=== PATIENT | male | born 1945 | race Caucasian/White ===

== ENCOUNTER → 2024-08-24 16:21 | Outpatient (REF) | payer OTHER, SELFPAY | LOC: RAD 16:21 | PROVIDERS: ATTENDING PHYSICIAN Nurse Practitioner Adult Health; FAMILY PHYSICIAN Family Medicine; REFERRING PHYSICIAN Registered Nurse | DX: M25.561 Pain in right knee (principal); M54.2 Cervicalgia | CPT/HCPCS: 72040; 73564 ==

== ENCOUNTER 2025-01-01 02:51 | Inpatient (IN) | payer OTHER, SELFPAY ==
[2024-12-31 22:44] VITALS: BP 170/89
[2024-12-31 23:47] VITALS: BP 163/93
[2024-12-31 23:52] VITALS: BMI 25.3
[2025-01-01] VITALS (10 sets, daily range): BP systolic 113–184; BP diastolic 79–95; PULSE 88; BMI 26.7
[2025-01-01 00:02] LABS: % Basophils 0.2 % (0-2); % Immature Granulocytes 0.6 % (0-0.5); % Lymphocytes 7.3 % (20.5-51.1); % Monocytes 8.9 % (1.7-9.3); Absolute Immature Granulocytes 0.1 10^3/uL (0-0.05); Absolute Lymphocytes 1.1 10^3/uL (1.2-3.4); Absolute Monocytes 1.4 10^3/uL (0.1-0.6); Absolute Neutrophils 12.9 10^3/uL (1.4-6.5); Hematocrit 36.6 % (39.0-52.0); Hemoglobin 12.7 g/dL (13.0-18.0); Mean Corp Hgb Conc. 34.7 g/dL (33.0-37.0); Mean Corpuscular Hgb 33.7 pg (27.0-31.0); Mean Corpuscular Volume 97.1 fL (80.0-94.0); Mean Platelet Volume 11.1 fL (7.4-10.4); Nucleated Red Blood Cells % 0 % (-); Platelet Count 186 10^3/uL (130-400); Red Blood Cell Count 3.77 10^6/uL (4.70-6.10); White Blood Cell Count 15.5 10^3/uL (4.8-10.8)
[2025-01-01 00:17] LABS: ALT (SGPT) 17 U/L (0-50); AST (SGOT) 20 U/L (17-59); Albumin 4.2 g/dl (3.5-5.0); Alkaline Phosphatase 67 U/L (38-126); Blood Urea Nitrogen 17 mg/dl (9-20); Calcium 9.9 mg/dl (8.4-10.2); Carbon Dioxide 28 mmol/L (22-30); Chloride 102 mmol/L (98-107); Estimated Creatinine Clearance 76 ml/min; Glucose 109 mg/dl (70-99); Lipase 646 U/L (23-300); Potassium 4.4 mmol/L (3.5-5.1); Sodium 137 mmol/L (135-145); Total Bilirubin 0.8 mg/dl (0.2-1.3); Total Protein 6.9 g/dl (6.3-8.2); eGFR > 60.00
--- NOTE | 2025-01-01 00:27 | ED.GENMED ---
History of Present Illness
General
Chief Complaint: Abdominal Pain
Source: patient
Time Seen by Provider: 01/01/25 00:11
History of Present Illness
History of Present Illness:
79-year-old male presents to the emergency room complaining of abdominal pain. Pain is located in the epigastric area. It does not radiate. Pain began earlier today. Patient had a knee replacement performed couple days ago at [facility]
orthopedics surgical center. He was prescribed several medications including Celebrex, oxycodone, Decadron postoperatively. Patient thought he was having pain related to the medications and so stopped the Celebrex and Decadron. He does have a
history of a hiatal hernia. Patient denies any abdominal operations in the past.
Phy Exam
Physical Exam
Physical Exam:
General: Awake, Alert, Oriented X3. No acute distress.
Vitals: unremarkable
Head: Atraumatic
Eyes: Pupils equal, EOMI
Throat: Airway intact, no exudates
Neck: Trachea midline
Lungs: Clear and equal b/l
Heart: Regular rate, no murmurs
Abd: Soft, tender to palpation in the upper abdomen, No pulsatile mass
Neuro: Nonfocal
Skin: Warm, dry, no rash
Extremities: pulses equal b/l, no edema
Course
Orders/Labs/Results
Orders:
Orders
12/31/24 22:44
EKG [Electrocardiogram (*1)] Urgent
Reason for Study: Abdominal Pain
EKG- Treatment ONCE
12/31/24 23:36
IV Insert/Care/Rem.- Treatment PRN
12/31/24 23:49
Complete Blood Count/With Diff Urgent
Comprehensive Metabolic Panel Urgent
Lipase Urgent
Triglycerides Urgent
Comment: ADD ON
01/01/25 00:25
HYDROmorphone [Dilaudid] 0.5 mg IV NOW STA
01/01/25 00:26
CT Abd/pelvis W Iv Cont Urgent
Comment:
Reason For Exam: epigastric pain
Lactated Ringers [Lr] 1,000 ml IV BOLUS
01/01/25 02:09
Add On- LAB Stat
Tests Added?: Triglycerides
Abnormal Lab Results
12/31/24
23:49
WBC 15.5 H 10^3/uL
(4.8-10.8)
RBC 3.77 L 10^6/uL
(4.70-6.10)
Hgb 12.7 L g/dL
(13.0-18.0)
Hct 36.6 L %
(39.0-52.0)
MCV 97.1 H fL
(80.0-94.0)
MCH 33.7 H pg
(27.0-31.0)
MPV 11.1 H fL
(7.4-10.4)
Abs Immat Gran (auto) 0.1 H 10^3/uL
(0-0.05)
Absolute Neuts (auto) 12.9 H 10^3/uL
(1.4-6.5)
Absolute Lymphs (auto) 1.1 L 10^3/uL
(1.2-3.4)
Absolute Monos (auto) 1.4 H 10^3/uL
(0.1-0.6)
Immature Gran % 0.6 H %
(0-0.5)
Neutrophils % 83.0 H %
(42.2-75.2)
Lymphocytes % 7.3 L %
(20.5-51.1)
Glucose 109 H mg/dl
(70-99)
Lipase 646 H U/L
(23-300)
12/31/24 23:49
12/31/24 23:49
Vital Signs
Initial and Last Documented VS:
Initial Vital Signs
Temp Pulse Resp BP Pulse Ox
98.9 F 90 18 170/89 98
12/31/24 22:44 12/31/24 22:44 12/31/24 22:44 12/31/24 22:44 12/31/24 22:44
Last Documented Vital Signs
Temp Pulse Resp BP Pulse Ox
98.9 F 80 17 184/95 95
12/31/24 22:44 01/01/25 02:00 01/01/25 02:00 01/01/25 02:00 01/01/25 02:00
MDM/Problems Addressed
Differential Diagnosis Includes:
Cholecystitis, choledocholithiasis, pancreatitis, gastritis
MDM/Problems Addressed:
Patient presents with epigastric pain. Labs show an elevated white blood cell count of 15.5, hemoglobin of 12.7. Electrolytes and renal function are normal. Glucose minimally elevated. LFTs are normal. Lipase elevated at 646. A CT was obtained
which shows acute pancreatitis without any complications. Pain improved with half milligram of Dilaudid. IV fluid resuscitation initiated with lactated Ringer's. Patient will require hospitalization for supportive care and further evaluation of
the cause of his pancreatitis.
*Radiology
Radiology exam reviewed: radiology read reviewed (Vision report)
*Pulse Oximetry
Patient hypoxic: no
*EKG
Interpreted by ED Provider?: Yes
Heart Rate: 80
Rate: normal
Rhythm: sinus
[place]: normal axis
Interval: normal interval
QRS Pattern: normal QRS
Ischemia: no ischemia
*Visual Merchandising Manager Interpretation
Rate: normal
Interpretation: normal
Rhythm: sinus
*Critical Care Note
Total Time (30-74mins, 75-104mins- exclusive of procedures): Not Applicable
ED Attending Note
-
Portions of this chart may have been created with voice recognition software.� Occasional wrong word or��sound alike� substitutions may have occurred due to the inherent limitations of voice recognition software.
Discharge Plan
Departure
Patient Disposition: Admit
Date of Disposition: 01/01/25
Time of Disposition: 01:24
Presentation/result/management discussed w/ accepting MD/DO: Hospitalist
Condition: Fair
Discharge Problem:
Acute pancreatitis
Referrals:
Odilon Tyson Jr., DO [Family Provider] -
Interventions
Interventions:
*Risk Screen - Suicide Last Done: 12/31/24 22:44
*General Assessment Last Done: 12/31/24 22:44
*Neglect/Abuse Screening Last Done: 12/31/24 22:44
*ED- Fall Risk Assessment Last Done: 12/31/24 22:44
*ED COVID-19 Vaccine History Last Done: 12/31/24 22:44
CR-Etmffx-Nfifzroree Assessment Last Done: 12/31/24 23:53
Discharge Date and Time
Print Language: HEBREW
[2025-01-01] MEDS: LR 1000 IV ×4 (00:59→17:07)
[2025-01-01] MEDS: DILAUDID 0.5 MG IV ×3 (01:00→09:42)
--- NOTE | 2025-01-01 02:24 | HPS.HSE ---
Family Physician
-
Family Physician: Odilon Tyson Jr.
Chief Complaint
-
Abdominal pain
History of Present Illness
This is a 79-year-old with past medical history significant for GERD, BPH, hyperlipidemia, postop day #2 status post right total knee arthroplasty presents to the emergency department with epigastric abdominal pain for the last 24 hours.
Patient reported that the procedure was uneventful and he was discharged home on medications including oxycodone, Tylenol, aspirin and Celebrex. Patient stated that after taking the Celebrex he started having epigastric pain. The Celebrex was
discontinued after 4 doses but he continued to have epigastric pain with nausea but no vomiting. He denies reflux type symptoms. He denies pain that is radiating to the back. The pain seems to be only epigastric. He denies any diarrhea. He
denies having any fevers or chills. Patient denies any urinary symptoms.
He denies any alcohol use. She denies any history of gallstones. He denies any prior history of intra-abdominal surgeries or pancreatitis.
In the emergency department patient was afebrile, he was hypertensive with a blood pressure as high as 180/90 and a pulse of 97. He had a white count of 15.5 otherwise CBC was unremarkable. Electrolytes BUN and creatinine were normal. His lipase
was elevated at 646. LFTs were completely normal. Total bilirubin was normal.
Medical History
Past Medical History
Past Medical History: Reports Hypercholesterolemia and Other (BPH)
Past Surgical History: Reports Orthopedic (Right total knee arthroplasty)
Social History
Tobacco: Non-smoker
Alcohol: Occasional
Drug: None
Personal:
Living: With Family
Employment: Retired
Family History
Family History: Not pertinent
Allergies / Home Medications
Allergies reflects when Allergies were last updated in [employer].
Home Medications with original date entered in [employer]
Allergy/Medication List:
Allergies
Allergy/AdvReac Type Severity Reaction Status Date / Time
No Known Allergies Allergy Unverified 12/31/24 22:44
Tamsulosin 0.4 mg capsule, 0.4 mg p.o. daily
Esomeprazole 40 mg tablet, 40 mg p.o. daily
Atorvastatin 10 mg tablet, 10 mg p.o. at bedtime
Gabapentin 300 mg tablet, 100 mg p.o. daily
Review of Systems
-
History Source: Patient and Family
Constitutional: Reports No Symptoms
EENT: Reports No Symptoms
Respiratory: Reports No Symptoms
Abdomen/GI: Reports Abdominal Pain
: Reports No Symptoms
Musculoskeletal: Reports No Symptoms
Skin: Reports No Symptoms
Neurological: Reports No Symptoms
Endocrine: Reports No Symptoms
Hematologic/Lymphatic: Reports No Symptoms
Psych: Reports No Symptoms
Physical Exam
Vital Signs
Vital Signs
Temp Pulse Resp BP Pulse Ox
98.9 F 80 17 184/95 95
12/31/24 22:44 01/01/25 02:00 01/01/25 02:00 01/01/25 02:00 01/01/25 02:00
Physical Exam
General: Well Developed, Well Nourished and Pain
HEENT: NormoCephalic, Anicteric, Moist mucous membranes and Atraumatic
Respiratory: Clear
Cardiac: S1/S2 and Regular Rhythm
Breast: Deferred by me
GI: Soft, Non Distended, Normal Bowel Sounds and Tender
Rectal: Deferred by Provider
Genito-urinary: Deferred by me
Musculoskeletal: No Clubbing, No Cyanosis and No Edema
Skin: Warm
Neuro: AO x 3 and Nonfocal/grossly intact
Hematologic/Lymphatic: No Lymphadenopathy
Psych: Calm
Laboratory Results
-
12/31/24 23:49
12/31/24 23:49
Laboratory Results
Total Bilirubin 0.8 mg/dl (0.2-1.3) 12/31/24 23:49
AST 20 U/L (17-59) 12/31/24 23:49
ALT 17 U/L (0-50) 12/31/24 23:49
Alkaline Phosphatase 67 U/L (38-126) 12/31/24 23:49
Lipase 646 U/L (23-300) H 12/31/24 23:49
Data Reviewed
-
CT Scan: Report Reviewed by me
Lab Data: Labs Reviewed by me
Old Records: Reviewed
Impression/Plan
-
IMPRESSION:
79-year-old who is postop day #2 status post right total knee arthroplasty presented emergency department with epigastric pain and found to have acute pancreatitis with a lipase of 600. LFTs are complete normal. CT of the abdomen pelvis consistent
with acute pancreatitis with pancreatic edema but no necrosis or peripancreatic fluid collection. There is no gallstone. There is no biliary ductal dilatation.
PLAN:
1. Acute pancreatitis -suspect acute interstitial pancreatitis secondary to drug induced or viral pancreatitis. Patient has no gallstones. No significant alcohol use. Exposure to celecoxib (class iv for pancreatitis). Non-toxic tylenol exposure.
Low dose oxycodone.
- admit to med/surg
- npo for now
- iv fluids
- pain control and antiemetics
- trend lfts
- check triglycerides and calcium
- hold celexocib
- GI consultation
DVT PPX - Lovenox sq
Code status - Full code
[2025-01-01 02:50] LABS: Triglycerides 74 mg/dl (10-149)
--- NOTE | 2025-01-01 05:06 | PTCARENOTE ---
03;20pt rec'vd from ER aaox3,able to ambulate to restroom, pt had r tka on the 12/29 at [place] , Aquacel intact w small drainage. pt is c/o 06/16mid abd pain, prn given, vs wnl ,oriented to unit.
[2025-01-01 06:50] LABS: Hematocrit 33.1 % (39.0-52.0); Hemoglobin 11.8 g/dL (13.0-18.0); Mean Corp Hgb Conc. 35.6 g/dL (33.0-37.0); Mean Corpuscular Hgb 34.7 pg (27.0-31.0); Mean Corpuscular Volume 97.4 fL (80.0-94.0); Mean Platelet Volume 11.3 fL (7.4-10.4); Platelet Count 177 10^3/uL (130-400); Red Cell Dist. Width 12.9 % (11.5-14.5); White Blood Cell Count 14.1 10^3/uL (4.8-10.8)
[2025-01-01 07:15] LABS: ALT (SGPT) 15 U/L (0-50); AST (SGOT) 17 U/L (17-59); Albumin 3.6 g/dl (3.5-5.0); Alkaline Phosphatase 64 U/L (38-126); Blood Urea Nitrogen 13 mg/dl (9-20); Calcium 9.5 mg/dl (8.4-10.2); Carbon Dioxide 27 mmol/L (22-30); Chloride 103 mmol/L (98-107); Direct Bilirubin 0.2 mg/dl (0.0-0.4); Estimated Creatinine Clearance 88 ml/min; Glucose 83 mg/dl (70-99); Potassium 4.1 mmol/L (3.5-5.1); Sodium 136 mmol/L (135-145); Total Bilirubin 0.7 mg/dl (0.2-1.3); Total Protein 5.9 g/dl (6.3-8.2); Triglycerides 60 mg/dl (10-149); eGFR > 60.00
--- NOTE | 2025-01-01 08:29 | CON.GI ---
Addendum entered and electronically signed by Jose Pringle MD 01/01/25 11:00:
Patient seen and examined, agree with nurse practitioner note. Patient presents with increasing epigastric pain. He recently had knee replacement and was on Decadron as well as aspirin and Celebrex. He started develop epigastric discomfort that
radiated to his back, started PPI though persisted. Upon presentation he is found to have mildly elevated lipase, normal LFTs, and CT scan with mild peripancreatic stranding. He is feeling better today, tolerating some clears, with much improved
pain overall. He has never had pain like this before. Usually has a couple of shots of alcohol nightly though has not had this since before his surgery. On exam he has minimal epigastric tenderness though otherwise is unremarkable.
1. Epigastric pain: Consistent with pancreatitis, with mild peripancreatic stranding noted on CT scan and elevated lipase. Etiology could be medication induced given steroids as well as NSAIDs. Posterior gastric ulcer is also possible though
seems less likely, is already much improved, and exam is benign. Alcohol seems less likely as he did stop this before his surgery. Biliary pancreatitis also seems unlikely given normal LFTs and CAT scan. At this point we will continue supportive
care, clear liquid diet, IV fluids. Will continue PPI twice daily for now and trend labs.
Original Note:
Consultation
-
Date/Time Consultation Requested: 01/01/25319
Date/Time Consultation Performed: 01/01/25828
Requesting Provider: Dr. Garcia
Performing Provider: Dr. Pringle/HIPOLITO Tierney
Reason for Consultation: pancreatitis
Medical History
Chief Complaint / HPI
Chief Complaint: abd pain
History of Present Illness:
79 y/o male with PMH of HLD, prostate cancer s/p XRT (2019), BPH, diverticulosis, GERD, colon polyps, osteoarthritis with recent right knee replacement on 12/28/24 presents to the ER with acute onset of epigastric/periumbilical pain. We are asked to
evaluate for the same. The patient states that he had a right TKA on Saturday. Was placed on ASA 325 mg, Celebrex BID, Decadron 4 mg BID as well as Oxycodone 5 mg prn. He states that on Saturday he started with pain in the epigastric/periumbilcial area
that was initially slight at first. He took Pepto Bismol with no relief by the second day with increasing discomfort he called his PCP who told him to stop the Celebrex and to increase Nexium to BID. Pain became increased, sharp, constant, non
radiating, associated with nausea and some some retching but no true vomiting. Nothing made better or worse. He denied and F, C, melena, hematochezia, dysphagia, odynophagia, early satiety or unintentional weight loss. He does drink 2 oz of bourbon
or scotch a day but stopped the week prior to surgery. No prior hx of sx like this prior. CT Abd/Pelvis with IV contrast without radiopaque gallstones, no biliary ductal dilatation, liver WNL, mild inflammatory stranding surrounding the entire
pancreas, suggestive of pancreatitis. No evidence of pancreatic necrosis or peripancreatic fluid collection. Patient was given 1 liter of LR already and continues on 100 cc/hr with decrease in pain but still present. Hgb 11.8 down from 12.7 showing
appropriate hemodilution for pancreatitis.
Past Medical History
Past Medical History: GERD, Hypercholesterolemia and Other (colon polyps, diverticulosis, osteoarthritis)
Past Surgical History: Other (right TKA)
Social History
Tobacco: Non-Smoker
Alcohol: Daily (2 oz of bourbon or scotch a day)
Drug: None
Personal:
Living: With Family
Employment: Retired
Family History
Family History: Other (No family hx of GI malignancy or IBD)
Allergies / Home Medications
Allergy/AdvReac Type Severity Reaction Status Date / Time
No Known Allergies Allergy Unverified 12/31/24 22:44
Review of Systems
-
All other systems: A 12 pt ROS was Negative except as stated above in HPI
Vital Signs
Temp Pulse Resp BP Pulse Ox
99.7 F 92 17 161/87 98
01/01/25 03:31 01/01/25 03:31 01/01/25 03:31 01/01/25 03:31 01/01/25 03:31
Physical Exam
Exam
General: No Apparent Distress
HEENT: Anicteric
Respiratory: Clear
Cardiac: Regular Rhythm
GI: Soft, Non Tender, Non Distended and Normal Bowel Sounds
Musculoskeletal: Edema (trace edema RLE)
Skin: Warm and Dry
Neuro: AO x 3
Psych: Calm
Results
WBC 14.1 10^3/uL (4.8-10.8) H 01/01/25 05:32
Hgb 11.8 g/dL (13.0-18.0) L 01/01/25 05:32
Hct 33.1 % (39.0-52.0) L 01/01/25 05:32
MCV 97.4 fL (80.0-94.0) H 01/01/25 05:32
Plt Count 177 10^3/uL (130-400) 01/01/25 05:32
Absolute Neuts (auto) 12.9 10^3/uL (1.4-6.5) H 12/31/24 23:49
Sodium 136 mmol/L (135-145) 01/01/25 05:32
Potassium 4.1 mmol/L (3.5-5.1) 01/01/25 05:32
Chloride 103 mmol/L (98-107) 01/01/25 05:32
Carbon Dioxide 27 mmol/L (22-30) 01/01/25 05:32
BUN 13 mg/dl (9-20) 01/01/25 05:32
Creatinine 0.6 mg/dL (0.7-1.3) L 01/01/25 05:32
Calcium 9.5 mg/dl (8.4-10.2) 01/01/25 05:32
Total Bilirubin 0.7 mg/dl (0.2-1.3) 01/01/25 05:32
AST 17 U/L (17-59) 01/01/25 05:32
ALT 15 U/L (0-50) 01/01/25 05:32
Alkaline Phosphatase 64 U/L (38-126) 01/01/25 05:32
Lipase 646 U/L (23-300) H 12/31/24 23:49
Diagnostic Image Results:
CT Abd/Pelvis with IV contrast:
IMPRESSION:
1. Findings consistent with acute pancreatitis. No evidence of pancreatic necrosis or peripancreatic fluid collection. No biliary ductal dilation appreciated.
2. Minimal reticular interstitial thickening at each lung base, similar compared to prior CT, suggestive of mild senescent change/interstitial fibrosis.
3. Small hiatal hernia.
Findings are in agreement with the after [facility] radiology report
Prior GI Procedures:
EGD:
Colonoscopy: 10/23/2021 No endoscopic evidence of radiation proctitis.
- Diverticulosis in the sigmoid colon.
- One 3 mm polyp in the sigmoid colon, removed with a
jumbo cold forceps. Resected and retrieved.
- One 7 mm polyp in the transverse colon, removed with
a cold snare. Resected and retrieved.
- The examined portion of the ileum was normal.
Colonoscopy 07/09/2018 - Non-bleeding external and internal hemorrhoids.
- Diverticulosis in the left colon.
- One 3 mm polyp in the sigmoid colon, removed with a
jumbo cold forceps. Resected and retrieved.
- One 5 mm polyp in the descending colon, removed with a
cold snare. Resected and retrieved.
- Two 2 mm polyps in the distal transverse colon,
removed with a jumbo cold forceps. Resected and
retrieved.
- One 5 mm polyp in the transverse colon, removed with a
jumbo cold forceps. Resected and retrieved.
- One 2 mm polyp in the transverse colon, removed with a
jumbo cold forceps. Resected and retrieved.
- Two 2 mm polyps in the cecum, removed with a jumbo
cold forceps. Resected and retrieved.
- The examined portion of the ileum was normal.
Assessment / Plan
-
79 y/o male with PMH of HLD, prostate cancer s/p XRT (2019), BPH, diverticulosis, GERD, colon polyps, osteoarthritis with recent right knee replacement on 12/28/24 presents to the ER with acute onset of epigastric/periumbilical pain. We are asked to
evaluate for the same. CT Abd/Pelvis with IV contrast without radiopaque gallstones, no biliary ductal dilatation, liver WNL, mild inflammatory stranding surrounding the entire pancreas, suggestive of pancreatitis. No evidence of pancreatic necrosis
or peripancreatic fluid collection. Normal LFTs. Lipase 563. Normal Calcium. Triglycerides 60. Patient was given 1 liter of LR already and continues on 100 cc/hr with decrease in pain but still present. Hgb 11.8 down from 12.7 showing appropriate
hemodilution for pancreatitis. Patient does drink 2 oz scotch or bourbon daily, no drink in > 1 week in anticipation for recent right TKA. New medications include Decadron and Celebrex which could have caused pancreatitis. Less likely the ASA 325
mg.
Impression:
Pancreatitis, first episode
Recent right TKA 12/28/24
Plan:
-Continue IVF, LR at 100 cc/hr
-Add incentive spirometer
-CBC, BMP in am
-Sips of clears as tolerated, if does ok will likely give clears later today.
-Would avoid ETOH, discussed patient as this was a daily habit for him.
-Continue Pantoprazole 40 mg IV daily.
-
-
Thank you for consultation and allowing me to participate in the patient's care. Please call the research professional GI physician during the after hours with any questions or concerns.
--- NOTE | 2025-01-01 08:34 | W.PN.HOSP.TC ---
Addendum entered and electronically signed by Andrea Jennings MD 01/01/25 13:10:
NAD, sitting in bedside chair
Scleral Anicteric
MMM
No JVD
CTABL
RRR, S1/S2
Soft, NT, ND, BS+
Warm, Dry
AAOx3
Calm
Acute pancreatitis
IV fluids with LR at 200 cc/h
Antiemetics
Analgesics
Clear liquid diet
Right TKA, recent as of 12/28/2024
PT OT
Ice
Elevate
Resume orthopedic recommended DVT prophylaxis of aspirin 325 mg daily
Original Note:
Today's Communication/Plan
-
Cont fluids
Pain management
Advance to liquid diet once nausea under control
Assessment / Plan
Assessment / Plan
79-year-old male who is postop day 2 status post total right knee arthroplasty presented to ED with midepigastric pain and found to have acute pancreatitis with lipase of 646. LFTs within normal limits, gallstone seen, no biliary ductal dilation on
pelvic CT. CT did reveal acute pancreatitis with pancreatic edema, but no necrosis or peripancreatic fluid collection. Triglycerides within normal limits, patient denies frequent alcohol use.
#Acute pancreatitis
� Likely secondary to recent celecoxib use status post total right knee arthroplasty as patient has no gallstones, no significant alcohol use, triglycerides within normal limits
-Transition from n.p.o. to clear liquid diet when patients nausea is under control
� IV fluids
� Pain control and antiemetics
� Follow LFTs
� Triglycerides and calcium within normal limits
� Hold Celecoxib
� GI appreciated
#Total right knee arthoplasty POD#3
-PT/OT consulted
#GERD
-Continue pantoprazole
#HLD
-Cont atorvastatin
#BPH
-Cont tamsulosin
DVT lovenox
Full Code
Anticipated Discharge: 24 - 48 hours
Subjective/Interval History
-
Date of Service: January 01, 2025
Objective Data
-
Labs:
Laboratory Results
12/31/24 01/01/25
23:49 05:32
WBC 15.5 H 14.1 H
Hgb 12.7 L 11.8 L
Hct 36.6 L 33.1 L
Plt Count 186 177
Sodium 137 136
Potassium 4.4 4.1
Chloride 102 103
Carbon Dioxide 28 27
BUN 17 13
Creatinine 0.7 0.6 L
Glucose 109 H 83
Calcium 9.9 9.5
Total Bilirubin 0.8 0.7
AST 20 17
ALT 17 15
Alkaline Phosphatase 67 64
Vital Signs:
Vital Signs
Temp Pulse Resp BP Pulse Ox
99.7 F 92 17 161/87 98
01/01/25 03:31 01/01/25 03:31 01/01/25 03:31 01/01/25 03:31 01/01/25 03:31
I&O
12/31/24 01/01/25 01/02/25
06:59 06:59 06:59
Intake Total 350 / 350
Output Total 400 / 400
Balance -50 / -50
Review of Systems
-
History Source: Patient
EENT: Reports No Symptoms Reported
Respiratory: Reports No Symptoms
Cardiac: Reports No Symptoms
Abdomen/GI: Reports Abdominal Pain; Denies Nausea, Vomiting, Diarrhea or Constipated
Neuro: Reports No Symptoms
Physical Exam
-
General: No Apparent Distress and Comfortable
HEENT: Normocephalic
Respiratory: Clear to Auscultation
Cardiac: Regular Rhythm, S1/S2 and Murmur (best heard at aortic point ); Negative Carotid Bruits
GI: Soft, Nondistended, Normal Bowel Sounds and Tender (Mid epigastric region )
Musculoskeletal: No Edema
Skin: Warm and Dry
Neuro: AO x 3
Psych: Calm
[2025-01-01] MEDS: FLOMAX 0.4 MG PO (09:35)
[2025-01-01] MEDS: PROTONIX IV 40 MG IV (09:35)
--- NOTE | 2025-01-01 11:53 | CM ---
Initial assessment completed
Pt lives with his in a 2 story home; 2 [address], FF set-up
Independent at baseline and was driving prior to total knee replacement 3 days ago - went home same day and had 2 home visits with [facility] for PT - was to start outpatient PT today. Currently uses rolling walker to ambulate
DME - rolling walker, single point cane
SNF - denies past hx
HH - [facility]
Has ride at d/c
PCP - Odilon Tyson
Pharm - [facility]
Plan - TBD; anticipate home with outpatient services vs w/VN
[2025-01-01] MEDS: ASPIRIN 325 MG PO (14:48)
[2025-01-01] MEDS: LIPITOR 10 MG PO (17:09)
[2025-01-01] MEDS: LOVENOX 40 MG SC (18:30)
--- NOTE | 2025-01-01 19:22 | PTCARENOTE ---
family requested to not have ASA 325mg BID, d/c were ADONIS and Lovenox. Dr. Rosado contacted, ASA changed to ADONIS.
[2025-01-01] MEDS: TYLENOL 650 MG PO (22:14)
[2025-01-02] MEDS: LR 1000 IV ×4 (01:40→20:03)
[2025-01-02 07:05] VITALS: BP 136/82
[2025-01-02 07:50] LABS: % Basophils 0.5 % (0-2); % Eosinophils 1.1 % (0-6); % Immature Granulocytes 0.5 % (0-0.5); % Lymphocytes 14.5 % (20.5-51.1); % Monocytes 9.2 % (1.7-9.3); % Neutrophils 74.2 % (42.2-75.2); Absolute Eosinophils 0.1 10^3/uL (0-0.7); Absolute Lymphocytes 1.2 10^3/uL (1.2-3.4); Absolute Monocytes 0.8 10^3/uL (0.1-0.6); Hematocrit 29.2 % (39.0-52.0); Hemoglobin 10.4 g/dL (13.0-18.0); Mean Corp Hgb Conc. 35.6 g/dL (33.0-37.0); Mean Corpuscular Hgb 35.1 pg (27.0-31.0); Mean Corpuscular Volume 98.6 fL (80.0-94.0); Mean Platelet Volume 11.6 fL (7.4-10.4); Nucleated Red Blood Cells % 0 % (-); Platelet Count 160 10^3/uL (130-400); Red Blood Cell Count 2.96 10^6/uL (4.70-6.10); Red Cell Dist. Width 12.8 % (11.5-14.5); White Blood Cell Count 8.1 10^3/uL (4.8-10.8)
[2025-01-02 08:04] LABS: ALT (SGPT) 15 U/L (0-50); AST (SGOT) 17 U/L (17-59); Albumin 2.9 g/dl (3.5-5.0); Alkaline Phosphatase 58 U/L (38-126); Blood Urea Nitrogen 12 mg/dl (9-20); Carbon Dioxide 28 mmol/L (22-30); Chloride 104 mmol/L (98-107); Estimated Creatinine Clearance 76 ml/min; Glucose 73 mg/dl (70-99); Potassium 4.2 mmol/L (3.5-5.1); Sodium 138 mmol/L (135-145); Total Bilirubin 0.8 mg/dl (0.2-1.3); Total Protein 5.2 g/dl (6.3-8.2); eGFR > 60.00
--- NOTE | 2025-01-02 08:44 | W.PN.GI.CBS2 ---
Today's Communication / Plan
-
Please see assessment and plan for details.
Assessment / Plan
-
1. Epigastric pain: Consistent with pancreatitis given imaging, labs and symptoms, mild, overall with much improved symptoms, likely medication related to either steroids or NSAIDs. Gastric ulcer is still possible given steroids and NSAIDs, though
seems less likely. At this point he is much improved. Will advance diet and if tolerates is okay to DC from GI standpoint. Would finish 2 weeks of PPI just in case there was some component of gastritis/peptic ulcer disease which does seem less
likely. We discussed continued NSAID avoidance.
Subjective
Subjective
Date of Service: January 02, 2025
Patient feeling much better overall, less pain, tolerated clears well with no vomiting, increased pain, nausea. No fevers or chills.
Objective
Data Reviewed
Laboratory Data:
Laboratory Results
01/02/25 06:31
01/02/25 06:31
Laboratory Results
Total Bilirubin 0.8 mg/dl (0.2-1.3) 01/02/25 06:31
AST 17 U/L (17-59) 01/02/25 06:31
ALT 15 U/L (0-50) 01/02/25 06:31
Alkaline Phosphatase 58 U/L (38-126) 01/02/25 06:31
Lipase 646 U/L (23-300) H 12/31/24 23:49
Vital Signs and I&O:
Vital Signs
Temp Pulse Resp BP Pulse Ox
99.3 F 88 16 136/82 96
01/02/25 07:05 01/02/25 07:05 01/02/25 07:05 01/02/25 07:05 01/02/25 07:05
I&O
01/01/25 01/02/25 01/03/25
06:59 06:59 06:59
Intake Total 350 / 350 5220 / 5220
Output Total 400 / 400 1450 / 1450 600 / 600
Balance -50 / -50 3770 / 3770 -600 / -600
Physical Exam
Physical Exam
General: NAD
Abdomen: normal bowel sounds, soft, no tenderness, no masses or bruits, no ascites
[2025-01-02] MEDS: PROTONIX IV 40 MG IV (10:23)
[2025-01-02] MEDS: TYLENOL 650 MG PO ×2 (10:23→23:30)
[2025-01-02] MEDS: FLOMAX 0.4 MG PO (10:24)
[2025-01-02] MEDS: ASPIRIN 325 MG PO (10:24)
--- NOTE | 2025-01-02 11:34 | W.PN.HOSP.TC ---
Today's Communication/Plan
-
Assessment / Plan
Assessment / Plan
NAD, sitting in bedside chair
Scleral Anicteric
MMM
No JVD
CTABL
RRR, S1/S2
Soft, NT, ND, BS+
Right LE swelling noted, knee incision line still covered
Warm, Dry
AAOx3
Calm
Acute pancreatitis
IV fluids with LR at 200 cc/h
Antiemetics
Analgesics
Advance diet as tolerated
Right TKA, recent as of 12/28/2024
PT OT
Ice
Elevate
Resume orthopedic recommended DVT prophylaxis of aspirin 325 mg daily
Check DVT study as there is unilateral swelling that is likely related to recent right tka but need to eval for dvt for completeness
Gerd
Continue PPI
Anticipated Discharge: Within 24 hours
Subjective/Interval History
-
Date of Service: January 02, 2025
Seen and examined. No new complaints. No acute overnight events.
Objective Data
-
Labs:
Laboratory Results
01/02/25
06:31
WBC 8.1
Hgb 10.4 L
Hct 29.2 L
Plt Count 160
Sodium 138
Potassium 4.2
Chloride 104
Carbon Dioxide 28
BUN 12
Creatinine 0.7
Glucose 73
Calcium 9.0
Total Bilirubin 0.8
AST 17
ALT 15
Alkaline Phosphatase 58
Vital Signs:
Vital Signs
Temp Pulse Resp BP Pulse Ox
99.3 F 88 16 136/82 96
01/02/25 07:05 01/02/25 07:05 01/02/25 07:05 01/02/25 07:05 01/02/25 07:05
I&O
01/01/25 01/02/25 01/03/25
06:59 06:59 06:59
Intake Total 350 / 350 5220 / 5220
Output Total 400 / 400 1450 / 1450 600 / 600
Balance -50 / -50 3770 / 3770 -600 / -600
[2025-01-02] MEDS: ROXICODONE 5 MG PO ×2 (12:47→19:49)
[2025-01-02] MEDS: LR IV (14:05)
[2025-01-02 15:00] VITALS: BP 139/77
--- NOTE | 2025-01-02 16:50 | PTCARENOTE ---
[place] [address] & [address] [place]. No BM. is taking 1-3 oxy/day but apparently takes at home also. TT with Dr. Kristian Jennings
[2025-01-02] MEDS: LOVENOX 40 MG SC (17:38)
[2025-01-02] MEDS: LIPITOR 10 MG PO (17:38)
[2025-01-02] MEDS: COLACE 100 MG PO (19:49)
[2025-01-02 23:00] VITALS: BP 136/77
[2025-01-03] MEDS: ROXICODONE 5 MG PO ×2 (03:09→12:37)
[2025-01-03 06:00] VITALS: BMI 26.4
[2025-01-03 06:55] VITALS: BP 148/74
[2025-01-03] MEDS: COLACE 100 MG PO (07:52)
[2025-01-03] MEDS: ASPIRIN 325 MG PO (07:52)
[2025-01-03] MEDS: TYLENOL 650 MG PO (07:52)
[2025-01-03] MEDS: FLOMAX 0.4 MG PO (07:52)
[2025-01-03] MEDS: PROTONIX IV 40 MG IV (07:53)
--- NOTE | 2025-01-03 08:15 | W.PN.GI.CBS2 ---
Today's Communication / Plan
-
Please see assessment and plan for details.
Assessment / Plan
-
1. Epigastric pain: Consistent with pancreatitis given imaging, labs and symptoms, mild, overall with much improved symptoms, likely medication related to either steroids or NSAIDs. Gastric ulcer is still possible given steroids and NSAIDs, though
seems less likely. At this point he is much improved. He is okay to DC from GI standpoint would finish 2 weeks of PPI just in case there was some component of gastritis/peptic ulcer disease which does seem less likely. We discussed continued
NSAID avoidance, though okay for aspirin as indicated.
We will sign off for now, please go back with any further questions..
Subjective
Subjective
Date of Service: January 03, 2025
Patient feeling well, tolerated diet without difficulty, no abdominal pain today. Doppler was negative for DVT, no fevers or chills.
Objective
Data Reviewed
Laboratory Data:
Laboratory Results
01/02/25 06:31
01/02/25 06:31
Laboratory Results
Total Bilirubin 0.8 mg/dl (0.2-1.3) 01/02/25 06:31
AST 17 U/L (17-59) 01/02/25 06:31
ALT 15 U/L (0-50) 01/02/25 06:31
Alkaline Phosphatase 58 U/L (38-126) 01/02/25 06:31
Lipase 646 U/L (23-300) H 12/31/24 23:49
Vital Signs and I&O:
Vital Signs
Temp Pulse Resp BP Pulse Ox
97.9 F 68 18 148/74 97
01/03/25 06:55 01/03/25 06:55 01/03/25 06:55 01/03/25 06:55 01/03/25 06:55
I&O
01/02/25 01/03/25 01/04/25
06:59 06:59 06:59
Intake Total 5220 / 5220 2800 / 2800
Output Total 1450 / 1450 2019 / 2019
Balance 3770 / 3770 780 / 780
Physical Exam
Physical Exam
General: NAD
Abdomen: normal bowel sounds, soft, no tenderness, no masses or bruits, no ascites
--- NOTE | 2025-01-03 12:06 | W.PN.HOSP.TC ---
Today's Communication/Plan
-
If orthostatic vitals normal in without EKG abnormalities then will discharge home with outpatient GI and orthopedic follow-up
Assessment / Plan
Assessment / Plan
NAD, sitting in bedside chair
Scleral Anicteric
MMM
No JVD
CTABL
RRR, S1/S2
Soft, NT, ND, BS+
Right LE swelling noted, knee incision line still covered
Warm, Dry
AAOx3
Calm
Acute pancreatitis
IV fluids with LR at 200 cc/h
Antiemetics
Analgesics
Advance diet as tolerated
Right TKA, recent as of 12/28/2024
PT OT
Ice
Elevate
Resume orthopedic recommended DVT prophylaxis of aspirin 325 mg daily
DVT study negative
Check orthostatic vitals and EKG stat
Gerd
Continue PPI
Anticipated Discharge: Today
Subjective/Interval History
-
Date of Service: January 03, 2025
Seen and examined.No acute overnight events.
Admits to feeling little lightheaded when he went from sitting to standing this morning
When ambulating felt like his heart was going slightly fast was self-limited
Objective Data
-
Vital Signs:
Vital Signs
Temp Pulse Resp BP Pulse Ox
97.9 F 68 18 148/74 97
01/03/25 06:55 01/03/25 06:55 01/03/25 06:55 01/03/25 06:55 01/03/25 06:55
I&O
01/02/25 01/03/25 01/04/25
06:59 06:59 06:59
Intake Total 5220 / 5220 2800 / 2800
Output Total 1450 / 1450 2019 / 2019
Balance 3770 / 3770 780 / 780
[2025-01-03 12:36] VITALS: BP 136/74; BP 140/70; BP 142/71; PULSE 62; PULSE 69; PULSE 73
--- NOTE | 2025-01-03 13:54 | W.DCSUMMARY ---
Discharge Summary
Discharge Data
Date of Admission: 01/01/25
Date of Discharge: 01/03/25
-
Pending Results: No
Hospital Course
79-year-old with past medical history significant for GERD, BPH, hyperlipidemia, postop day #2 status post right total knee arthroplasty
Presented with abdominal pain. Found to have a acute pancreatitis with CT scan demonstrating this finding along with pain consistency and elevated lipase. Believed to be secondary to Celebrex use which has been discontinued. Started on IV fluids
and analgesics. Evaluated by gastroenterology and recommended to finish up 2 weeks of PPI twice a day to cover for peptic ulcer disease and avoid NSAIDs. Outpatient gastroenterology follow-up.
Continue to follow physical therapy recommend shins along with orthopedic recommendations from surgery along with aspirin use. Outpatient orthopedic follow
CTAP
IMPRESSION:
1. Findings consistent with acute pancreatitis. No evidence of pancreatic necrosis or peripancreatic fluid collection. No biliary ductal dilation appreciated.
2. Minimal reticular interstitial thickening at each lung base, similar compared to prior CT, suggestive of mild senescent change/interstitial fibrosis.
3. Small hiatal hernia.
Findings are in agreement with the [facility]ology report.
DVT Study
IMPRESSION:
No evidence of DVT of the right lower extremity.
Right popliteal fossa fluid collection likely a benign Sotelo's cyst.
Discharge Plan
-
Patient Disposition: Home (Routine Discharge)
Discharge Diagnosis/Procedures: Acute pancreatitis
Condition: Good
Diet: As tolerated, Low Fat and Low Cholesterol
Activity: As tolerated
Activity Restrictions/Additional Instructions:
Presented with abdominal pain. Found to have a acute pancreatitis with CT scan demonstrating this finding along with pain consistency and elevated lipase. Believed to be secondary to Celebrex use which has been discontinued. Started on IV fluids
and analgesics. Evaluated by gastroenterology and recommended to finish up 2 weeks of PPI twice a day to cover for peptic ulcer disease and avoid NSAIDs. Outpatient gastroenterology follow-up.
Continue to follow physical therapy recommend shins along with orthopedic recommendations from surgery along with aspirin use. Outpatient orthopedic follow
CTAP
IMPRESSION:
1. Findings consistent with acute pancreatitis. No evidence of pancreatic necrosis or peripancreatic fluid collection. No biliary ductal dilation appreciated.
2. Minimal reticular interstitial thickening at each lung base, similar compared to prior CT, suggestive of mild senescent change/interstitial fibrosis.
3. Small hiatal hernia.
Findings are in agreement with the [facility] radiology report.
DVT Study
IMPRESSION:
No evidence of DVT of the right lower extremity.
Right popliteal fossa fluid collection likely a benign Sotelo's cyst.
Referrals:
Odilon Tyson Jr., DO [Family Provider] -
Prescriptions:
New
aspirin 325 mg Tablet
325 mg PO DAILY Qty: 30 0RF
docusate sodium 100 mg Capsule
100 mg PO BID Qty: 30 0RF
atorvastatin 10 mg Tablet
10 mg PO QPM Qty: 30 0RF
tamsulosin 0.4 mg Capsule
0.4 mg PO DAILY Qty: 30 0RF
pantoprazole [Protonix] 40 mg tablet,delayed release (DR/EC)
40 mg PO BID 14 Days Qty: 28 0RF
Discharge Orders:
Discharge Patient (As Directed); Ordered 01/03/25
Ordered By: Andrea Jennings
Discharge Date and Time
Print Language: [place]
[2025-01-03 14:44] VITALS: BP 129/60
--- NOTE | 2025-01-03 15:23 | CM ---
Patient with Dx Acute pancreatitis, recent Right TKA. PT recommends Outpatient Therapy. OT Eval; No skilled OT needed.
Met with patient and while patient was preparing for discharge.
The patient says he feels ready for discharge home today. IMM completed.
will provide transport home.
He states he recently completed home PT and was given a script by his Ortho Doc for outpatient PT, which he plans on starting tomorrow.
No CM d/c needs identified.
Plan home today.
== END 2025-01-03 15:12 | disposition home or self-care (01) | DRG 440 ==
LOC: 2 SOUTH 02:51
PROVIDERS: Nurse Practitioner; Student in an Organized Health Care Education/Training Program; ADMITTING PHYSICIAN Internal Medicine; ATTENDING PHYSICIAN Hospitalist; CONSULT PHYSICIAN Internal Medicine Gastroenterology; EMERGENCY PHYSICIAN Emergency Medicine; FAMILY PHYSICIAN Family Medicine
DX: K85.90 Acute pancreatitis without necrosis or infection, unspecified (principal); R74.8 Abnormal levels of other serum enzymes; K21.9 Gastro-esophageal reflux disease without esophagitis; N40.0 Benign prostatic hyperplasia without lower urinary tract symptoms; E78.00 Pure hypercholesterolemia, unspecified; Z96.651 Presence of right artificial knee joint; K44.9 Diaphragmatic hernia without obstruction or gangrene
CPT/HCPCS: 74177; 80053; 82248; 83690; 84478; 85025; 85027; 93005; 93971; 96361; 96374; 97110; 97162; 97166; 99285; 99406; Q9967

== ENCOUNTER → 2025-02-19 14:45 | Outpatient (REF) | payer OTHER, SELFPAY | LOC: RAD 14:45 | PROVIDERS: ATTENDING PHYSICIAN Family Medicine | DX: M54.2 Cervicalgia (principal); M54.40 Lumbago with sciatica, unspecified side; Z85.46 Personal history of malignant neoplasm of prostate | CPT/HCPCS: 72040; 72110 ==